=== PATIENT | female | born 1990 | race Caucasian/White ===

== ENCOUNTER 2021-03-27 21:19 | Emergency (ER) | payer OTHER ==
[2021-03-27 21:27] VITALS: BP 135/75; PULSE 81; RESP 18; TEMP 98.1
--- NOTE | 2021-03-27 21:56 | ED ---
Wound/Laceration HPI - General Chief Complaint: Wound/Laceration Stated Complaint: Post Op C Section Incision pain Time Seen by Provider: 03/27/21 21:29 Source: patient, RN notes reviewed Mode of arrival: ambulatory Limitations: no limitations - History of Present Illness Initial Comments: Patient is a 30-year-old female that presents to the emergency department status post 3 days from . She notes that she has been taking her antibiotics and pain medication as prescribed from her [employer]. She notes that she came in today due to some mons pubis swelling. She was otherwise in no apparent distress or pain. She is wanted to get the incision looked at to make sure it was not infected. She denied any fever nausea vomiting. She denied any chest pain shortness of breath headache nausea vomiting diarrhea constipation fever fatigue chills. - Related Data Allergies Allergy/AdvReac Type Severity Reaction Status Date / Time acetaminophen Allergy Confusion Verified 03/27/21 21:28 [From Darvocet-N] propoxyphene Allergy Confusion Verified 03/27/21 21:28 [From Darvocet-N] topiramate [From Topamax] Allergy Rash/Hives Verified 03/27/21 21:28 Review of Systems ROS Statement: Those systems with pertinent positive or pertinent negative responses have been documented in the HPI. ROS Other: All systems not noted in ROS Statement are negative. Past Medical History Past Medical History: Seizure Disorder History of Any Multi-Drug Resistant Organisms: None Reported Past Surgical History: Orthopedic Surgery Additional Past Surgical History / Comment(s): Past Psychological History: No Psychological Hx Reported Smoking Status: Never smoker Past Alcohol Use History: None Reported Past Drug Use History: None Reported General Exam Limitations: no limitations General appearance: alert, in no apparent distress Head exam: Present: atraumatic, normocephalic, normal inspection Eye exam: Present: normal appearance, PERRL, EOMI. Absent: scleral icterus, conjunctival injection, periorbital swelling Neck exam: Present: normal inspection Respiratory exam: Present: normal lung sounds bilaterally. Absent: respiratory distress, wheezes, rales, rhonchi, stridor Cardiovascular Exam: Present: regular rate, normal rhythm, normal heart sounds. Absent: systolic murmur, diastolic murmur, rubs, gallop, clicks GI/Abdominal exam: Present: soft, normal bowel sounds, other ( incision nonerythematous no signs or symptoms of infection appears to be healing well.). Absent: distended, tenderness, guarding, rebound, rigid Extremities exam: Present: normal inspection, full ROM, normal capillary refill. Absent: tenderness, pedal edema, joint swelling, calf tenderness Neurological exam: Present: alert, oriented X3 Psychiatric exam: Present: normal affect, normal mood Skin exam: Present: warm, dry, intact, normal color. Absent: rash Course Vital Signs 03/27/21 21:23 Temperature 98.1 F Pulse Rate 81 Respiratory 18 Rate Blood Pressure 135/75 O2 Sat by Pulse 99 Oximetry Medical Decision Making - Medical Decision Making 30-year-old female complaining of mons pubis swelling status post 3 days ago. Given patient's clinical symptoms and history, most likely course of postop healing. Case discussed with Dr. Vidal, patient discharge home in stable condition with follow-up to [employer] as planned. Disposition Clinical Impression: section wound complication Disposition: HOME SELF-CARE Condition: Stable Instructions (If sedation given, give patient instructions): (DC) Additional Instructions: Please return to the Emergency Department if symptoms worsen or any other concerns. Follow-up primary care and [employer] as planned. Continue take at home medications as prescribed. Is patient prescribed a controlled substance at d/c from ED?: No Referrals: Luis Enrique Canales DO [Primary Care Provider] - 1-2 days Time of Disposition: 21:56
== END 2021-03-27 22:20 | disposition home or self-care (01) ==
LOC: EC 21:19
DX: O86.01 Infection of obstetric surgical wound, superficial incisional site (principal); Z88.6 Allergy status to analgesic agent; Z88.8 Allergy status to other drugs, medicaments and biological substances
CPT/HCPCS: 99283

== ENCOUNTER → 2023-08-09 | Outpatient (CLI) | payer OTHER ==
--- NOTE | 2023-08-10 08:25 | US ---
EXAMINATION TYPE: US transvaginal DATE OF EXAM: 08/09/2023 COMPARISON: NONE CLINICAL INDICATION: Female, 33 years old with history of N92.6; pain with menses since emergency c-s ection 2 years ago, irregular period will start, stop for two days and continue again TECHNIQUE: Transvaginal (TV). Transvaginal sonographic images were medically necessary to better as sess the following anatomy: Endometrium Date of LMP: irregular, unsure EXAM MEASUREMENTS: Uterus: 8.7x3.4x4.1 cm Endometrial Stripe: 0.7 cm Right Ovary: 2.6x1.2x1.4 cm Left Ovary: 2.4x1.2x2.3 cm 1. Uterus: Anteverted wnl 2. Endometrium: endometrium may be exposed at scar, difficult to assess due to shadowing 3. Right Ovary: wnl 4. Left Ovary: wnl 5. Bilateral Adnexa: Obscured by overlying bowel gas 6. Posterior cul-de-sac: wnl IMPRESSION: 1. No evidence for acute process. 2. Endometrium within normal limits for thickness.
== END | disposition home or self-care (01) ==
LOC: RADUSWWP 16:49
PROVIDERS: ATTEND Family Medicine
DX: N92.6 Irregular menstruation, unspecified (principal)
CPT/HCPCS: 76830